=== PATIENT | female | born 1990 | race Caucasian/White ===

== ENCOUNTER 2016-12-27 21:45 | Emergency (ER) | payer MEDICAID ==
[~2016-12-27] VITALS: Ht 162.6 cm; Wt 95.3 kg
[~2016-12-27 21:45] MED LIST: LEVO500T3 PO; NOR5T PO
[2016-12-27 22:00] VITALS: BP 139/76
[2016-12-27 23:04] LABS: Urine Bilirubin Negative (Negative); Urine Blood Negative /uL (Negative); Urine Color Yellow (Yellow); Urine Glucose Normal (Normal); Urine Ketone Negative (Negative); Urine Nitrite Negative (Negative); Urine RBC 4 /hpf (0 - 4); Urine Squamous Epithelial Cell FEW /hpf (<5); Urine pH 5.5 (5.0-8.0)
[2016-12-27] MEDS ORDERED: KETOROLAC TROMETH 60MG/2ML VIAL IM ONE (23:15)
== END 2016-12-27 23:34 | disposition home or self-care (01) ==
LOC: ER 21:45
DX: N39.0 Urinary tract infection, site not specified (principal); M54.32 Sciatica, left side; M54.31 Sciatica, right side; F17.210 Nicotine dependence, cigarettes, uncomplicated
CPT/HCPCS: 81001; 96372; 99283; J1885

== ENCOUNTER 2017-04-03 16:49 | Emergency (ER) | payer MEDICAID ==
[~2017-04-03] VITALS: Ht 162.6 cm; Wt 96.2 kg
[~2017-04-03 16:49] MED LIST changes: +HYDR-4663 PO; +LEVO500T21 PO; -LEVO500T3 PO; -NOR5T PO
[2017-04-03 17:47] VITALS: BP 114/68
== END 2017-04-03 18:18 | disposition home or self-care (01) ==
LOC: ER 16:49
DX: J02.9 Acute pharyngitis, unspecified (principal); F17.210 Nicotine dependence, cigarettes, uncomplicated; E11.9 Type 2 diabetes mellitus without complications; Z87.442 Personal history of urinary calculi

== ENCOUNTER 2017-11-15 09:29 | Emergency (ER) | payer MEDICAID ==
[~2017-11-15] VITALS: Ht 162.6 cm; Wt 95.3 kg
[~2017-11-15 09:29] MED LIST changes: -HYDR-4663 PO; +HYDR-4683 PO
[2017-11-15 10:08] LABS: Urine Bacteria FEW /hpf (None Seen); Urine Blood Negative /uL (Negative); Urine Specific Gravity 1.008 (1.001-1.035); Urine WBC <1 /hpf (0 - 5)
[2017-11-15 10:28] LABS: Basophils # (auto) 0 uL; Basophils % (auto) 0.5 % (0.0-2.0); Eosinophils # (auto) 0.1 uL; Eosinophils % (auto) 1.7 % (0.0-7.0); Hematocrit 42.8 % (36.0-46.0); Hemoglobin 14.5 g/dL (12.2-16.2); Lymphocytes # (auto) 1.7 uL; Lymphocytes % (auto) 23.4 % (10.0-50.0); Mean Corpuscular Hgb Conc. 33.8 g/dL (32.0-36.0); Monocytes # (auto) 0.5 uL; Monocytes % (auto) 7.2 % (0.0-12.0); Neutrophils # (auto) 4.8 uL; Neutrophils % (auto) 67.2 % (37.0-80.0); Nucleated Red Blood Cells % 0.3 %; Platelet Count (auto) 305 10^3/uL (140-450); Red Blood Cells 4.98 10^6/uL (4.0-5.20); Red Cell Distribution Width 12.7 % (11.8-14.3); White Blood Cell 7.2 10^3/uL (4.4-10.8)
[2017-11-15 10:56] LABS: Albumin 3.7 g/dL (3.4-5.0); Calcium 8.4 mg/dL (8.5-10.1); Potassium 3.7 mmol/L (3.5-5.1)
[2017-11-15 10:58] LABS: Bilirubin, Total 0.7 mg/dL (0.2-1.0); Total Protein 7.6 g/dL (6.4-8.2)
[2017-11-15 12:35] VITALS: BP 120/63
[2017-11-15] MEDS ORDERED: HYDROcodone-ACET 5/325MG TAB ONE (16:08)
[2017-11-15] MEDS ORDERED: HYDROcodone-ACET 5/325MG TAB PO ONE (16:15)
== END 2017-11-15 16:52 | disposition home or self-care (01) ==
LOC: ER 09:29
DX: K80.20 Calculus of gallbladder without cholecystitis without obstruction (principal); K76.0 Fatty (change of) liver, not elsewhere classified; F17.210 Nicotine dependence, cigarettes, uncomplicated; Z87.442 Personal history of urinary calculi
CPT/HCPCS: 36415; 74176; 76705; 80053; 81001; 81025; 85025

== ENCOUNTER 2018-05-17 12:27 | Inpatient (IN) | payer MEDICAID ==
[~2018-05-17] VITALS: Ht 162.6 cm; Wt 94.6 kg
[2018-05-17 13:25] LABS: Urine Bacteria NONE SEEN /hpf (None Seen); Urine Blood Negative /uL (Negative); Urine WBC <1 /hpf (0 - 5)
[2018-05-17 13:26] LABS: Basophils # (auto) 0 uL; Basophils % (auto) 0.4 % (0.0-2.0); Eosinophils # (auto) 0.1 uL; Eosinophils % (auto) 0.7 % (0.0-7.0); Hematocrit 43.3 % (36.0-46.0); Hemoglobin 14.6 g/dL (12.2-16.2); Lymphocytes # (auto) 1.3 uL; Lymphocytes % (auto) 14.5 % (10.0-50.0); Mean Corpuscular Hemoglobin 29.7 pg (28.0-32.0); Mean Corpuscular Hgb Conc. 33.7 g/dL (32.0-36.0); Mean Corpuscular Volume 88.1 fL (80.0-100.0); Monocytes # (auto) 0.6 uL; Monocytes % (auto) 6.8 % (0.0-12.0); Neutrophils # (auto) 7.1 uL; Neutrophils % (auto) 77.6 % (37.0-80.0); Platelet Count (auto) 308 10^3/uL (140-450); Red Blood Cells 4.92 10^6/uL (4.0-5.20); Red Cell Distribution Width 12.9 % (11.8-14.3); White Blood Cell 9.2 10^3/uL (4.4-10.8)
[2018-05-17 13:46] LABS: Albumin 3.8 g/dL (3.4-5.0); Calcium 8.9 mg/dL (8.5-10.1); Potassium 3.7 mmol/L (3.5-5.1)
[2018-05-17 13:51] LABS: BUN/Creatinine Ratio 10.3; Bilirubin, Total 0.5 mg/dL (0.2-1.0); Total Protein 7.7 g/dL (6.4-8.2)
[2018-05-17] MEDS ORDERED: SODIUM CHLORIDE 0.9% 500 ML IVB ONE (17:47)
[2018-05-17] MEDS ORDERED: MORPHINE SULFATE 4 MG/ML SYR/VIAL IV ONE (18:00)
[2018-05-17] MEDS ORDERED: ONDANSETRON HCL 4 MG/2 ML VIAL IV ONE (18:00)
[2018-05-17] MEDS ORDERED: VANCOMYCIN PER PHARMACY 0 MG IV SCH (18:30)
[2018-05-17] MEDS ORDERED: cefTRIAXone 1GM/10ml IVPUSH 10 ML IV ONE (18:30)
[2018-05-17] MEDS ORDERED: MORPHINE SULF INJ 2 MG/ML SYRINGE 1ML IV PRN (18:45)
[2018-05-17] MEDS ORDERED: TEMAZEPAM 15 MG CAP PO PRN (18:45)
[2018-05-17] MEDS ORDERED: NITROGLYCERIN 0.4 MG SL TAB SL PRN (18:45)
[2018-05-17] MEDS ORDERED: ACETAMINOPHEN 325 MG TAB PO PRN (18:45)
[2018-05-17] MEDS ORDERED: PROMETHAZINE HCL 25 MG/ML 1ML IV PRN (18:45)
[2018-05-17] MEDS ORDERED: KETOROLAC TROMETH 30 MG/ML 1ML VIAL IV PRN (18:45)
[2018-05-17] MEDS ORDERED: HYDROcodone-ACET 5/325MG TAB PO PRN (18:45)
[2018-05-17] MEDS ORDERED: DOCUSATE SOD 100 MG CAP PO PRN (18:45)
[2018-05-17] MEDS: VANCOMYCIN 1GM/250ML 250 ML IV SCH (19:12)
[2018-05-17 22:00] VITALS: BP 135/69
[2018-05-17] MEDS: SODIUM CHLOR 0.9% PF (SALINE LOCK) 10ML VIAL/SYR IV SCH (22:18)
[2018-05-17] MEDS: FAMOTIDINE 20 MG TAB PO SCH (22:18)
[2018-05-17 22:21] VITALS: BP 135/69
[2018-05-18 05:00] VITALS: BP 105/60
[2018-05-18] MEDS ORDERED: TRAM50TA2 PO (05:14)
[2018-05-18] MEDS: VANCOMYCIN 1GM/250ML 250 ML IV SCH (05:54)
[2018-05-18] MEDS: SODIUM CHLOR 0.9% PF (SALINE LOCK) 10ML VIAL/SYR IV SCH ×2 (05:54→14:00)
[2018-05-18 06:42] LABS: Basophils # (auto) 0 uL; Basophils % (auto) 0.3 % (0.0-2.0); Eosinophils # (auto) 0.2 uL; Eosinophils % (auto) 2.1 % (0.0-7.0); Hematocrit 41.3 % (36.0-46.0); Hemoglobin 14.1 g/dL (12.2-16.2); Lymphocytes # (auto) 1.6 uL; Lymphocytes % (auto) 20.5 % (10.0-50.0); Mean Corpuscular Hemoglobin 30.1 pg (28.0-32.0); Mean Corpuscular Hgb Conc. 34.1 g/dL (32.0-36.0); Mean Corpuscular Volume 88.2 fL (80.0-100.0); Monocytes # (auto) 0.7 uL; Monocytes % (auto) 9.2 % (0.0-12.0); Neutrophils # (auto) 5.3 uL; Neutrophils % (auto) 67.9 % (37.0-80.0); Platelet Count (auto) 281 10^3/uL (140-450); Red Blood Cells 4.68 10^6/uL (4.0-5.20); White Blood Cell 7.9 10^3/uL (4.4-10.8)
[2018-05-18 07:16] LABS: Albumin 3.3 g/dL (3.4-5.0); BUN/Creatinine Ratio 17.9; Bilirubin, Total 0.6 mg/dL (0.2-1.0); Calcium 8.4 mg/dL (8.5-10.1); Potassium 3.8 mmol/L (3.5-5.1); Total Protein 6.8 g/dL (6.4-8.2)
[2018-05-18 09:00] VITALS: BP 112/66
[2018-05-18] MEDS ORDERED: cefTRIAXone 1GM/10ml IVPUSH 10 ML IV SCH (09:00)
[2018-05-18] MEDS: FAMOTIDINE 20 MG TAB PO SCH (09:43)
[2018-05-18] MEDS ORDERED: MULTIPLE VITAMIN TAB PO SCH (10:00)
[2018-05-18 12:38] VITALS: BP_SYST 120; BP_SYST 151; BP_DIAS 61; BP_DIAS 72
[2018-05-18 16:52] VITALS: BP 120/73
== END 2018-05-18 17:15 | disposition home or self-care (01) | DRG 465 ==
LOC: ER 12:27 → TELE 12:28 → TELE-WESTW 22:07
PROVIDERS: ADMIT Internal Medicine; ATTEND Internal Medicine
DX: N23 Unspecified renal colic (principal); F32.9 Major depressive disorder, single episode, unspecified; K80.20 Calculus of gallbladder without cholecystitis without obstruction; Z68.35 Body mass index [BMI] 35.0-35.9, adult; E66.9 Obesity, unspecified; F17.210 Nicotine dependence, cigarettes, uncomplicated; K42.9 Umbilical hernia without obstruction or gangrene; Z83.3 Family history of diabetes mellitus
CPT/HCPCS: 36415; 74176; 76705; 80053; 81001; 83605; 83690; 84702; 85025; 87040; 87081; 87086; 94761; 96374; 96375; J0696

== ENCOUNTER 2018-10-31 08:03 | Emergency (ER) | payer MEDICAID ==
[~2018-10-31] VITALS: Ht 162.6 cm; Wt 95.3 kg
[~2018-10-31 08:03] MED LIST changes: -HYDR-4683 PO; -LEVO500T21 PO; +TRAM50TA2 PO
[2018-10-31 08:20] VITALS: BP 143/74
== END 2018-10-31 10:57 | disposition home or self-care (01) ==
LOC: ER 08:03
DX: J02.9 Acute pharyngitis, unspecified (principal); F12.10 Cannabis abuse, uncomplicated; F17.210 Nicotine dependence, cigarettes, uncomplicated; Z87.442 Personal history of urinary calculi

== ENCOUNTER 2019-08-01 16:05 | Emergency (ER) | payer MEDICAID ==
[~2019-08-01] VITALS: Ht 162.6 cm; Wt 95.3 kg
[2019-08-01 16:42] LABS: Urine WBC None Seen /hpf (0 - 5)
[2019-08-01 16:52] LABS: Basophils # (auto) 0 uL; Basophils % (auto) 0.4 % (0.0-2.0); Eosinophils # (auto) 0.1 uL; Hematocrit 45.4 % (36.0-46.0); Hemoglobin 15.1 g/dL (12.2-16.2); Lymphocytes # (auto) 2.3 uL; Lymphocytes % (auto) 20.2 % (10.0-50.0); Mean Corpuscular Hgb Conc. 33.2 g/dL (32.0-36.0); Mean Corpuscular Volume 87.4 fL (80.0-100.0); Monocytes # (auto) 0.8 uL; Neutrophils % (auto) 71.4 % (37.0-80.0); Platelet Count (auto) 314 10^3/uL (140-450); Red Cell Distribution Width 14.1 % (11.8-14.3); White Blood Cell 11.2 10^3/uL (4.4-10.8)
[2019-08-01 17:06] LABS: Albumin 3.9 g/dL (3.4-5.0); Calcium 9.1 mg/dL (8.5-10.1); Potassium 3.6 mmol/L (3.5-5.1)
[2019-08-01 17:09] LABS: Bilirubin, Total 0.7 mg/dL (0.2-1.0)
[2019-08-01 17:14] LABS: Urine Bacteria NONE SEEN /hpf (None Seen); Urine Blood Negative /uL (Negative); Urine Specific Gravity 1.007 (1.001-1.035)
[2019-08-01] MEDS ORDERED: HYDROcodone-ACET 10/325MG TAB PO ONE (17:45)
[2019-08-01 19:23] VITALS: BP 108/59
== END 2019-08-01 19:30 | disposition home or self-care (01) ==
LOC: ER 16:05
DX: K80.20 Calculus of gallbladder without cholecystitis without obstruction (principal); F17.210 Nicotine dependence, cigarettes, uncomplicated; F12.10 Cannabis abuse, uncomplicated
CPT/HCPCS: 36415; 74176; 80053; 81001; 81025; 83690; 85025

== ENCOUNTER 2021-06-12 15:37 | Emergency (ER) | payer MEDICAID ==
[~2021-06-12] VITALS: Ht 162.6 cm; Wt 95.3 kg
[2021-06-12 17:39] VITALS: BP 106/76
== END 2021-06-12 18:11 | disposition home or self-care (01) ==
LOC: ER 15:37
DX: J20.9 Acute bronchitis, unspecified (principal); J02.9 Acute pharyngitis, unspecified; Z20.822 Contact with and (suspected) exposure to COVID-19
CPT/HCPCS: 36415; 71045; 71046; 87426

== ENCOUNTER 2021-06-28 14:58 | Emergency (ER) | payer MEDICAID ==
[~2021-06-28] VITALS: Ht 162.6 cm; Wt 95.3 kg
[2021-06-28 18:51] VITALS: BP 134/69
[2021-06-28] MEDS ORDERED: ONDANSETRON ODT 4 MG TAB PO ONE (19:15)
[2021-06-28] MEDS ORDERED: HYDROcodone-ACET 10/325MG TAB PO ONE (19:15)
[2021-06-28] MEDS ORDERED: cefTRIAXone 1GM/50ML D5W 50 ML IV ONE (19:30)
[2021-06-28] MEDS ORDERED: LIDOCAINE 2%HCL (LOCAL ANESTH.) INJ 10ml MDV IJ ONE (20:00)
[2021-06-28] MEDS ORDERED: LIDOCAINE 1% HCL (LOCAL ANESTH.) INJ 20ML MDV ID ONE (20:15)
== END 2021-06-28 22:10 | disposition home or self-care (01) ==
LOC: ER 14:58
DX: L05.01 Pilonidal cyst with abscess (principal); E66.9 Obesity, unspecified; Z68.36 Body mass index [BMI] 36.0-36.9, adult; Z87.891 Personal history of nicotine dependence; Z79.899 Other long term (current) drug therapy
CPT/HCPCS: 10080; 96365; 99284; C1887; J0696; J2001; Q0162

== ENCOUNTER 2022-01-29 08:35 | Emergency (ER) | payer MEDICAID ==
[~2022-01-29] VITALS: Ht 162.6 cm; Wt 99.8 kg
[2022-01-29 08:37] VITALS: BP 129/76
[2022-01-29] MEDS ORDERED: KETOROLAC TROMETH 60MG/2ML VIAL IM ONE (09:00)
[2022-01-29] MEDS ORDERED: IBUP800T27 PO (09:08)
== END 2022-01-29 09:16 | disposition home or self-care (01) ==
LOC: ER 08:35
DX: S83.92XA Sprain of unspecified site of left knee, initial encounter (principal); F12.10 Cannabis abuse, uncomplicated; Z87.442 Personal history of urinary calculi; Z87.891 Personal history of nicotine dependence; W18.09XA Striking against other object with subsequent fall, initial encounter; Y93.01 Activity, walking, marching and hiking; Y92.89 Other specified places as the place of occurrence of the external cause; Y99.8 Other external cause status
CPT/HCPCS: 96372; 99283; J1885

== ENCOUNTER 2022-02-23 07:49 | Emergency (ER) | payer MEDICAID ==
[~2022-02-23] VITALS: Ht 162.6 cm; Wt 99.8 kg
[~2022-02-23 07:49] MED LIST changes: +IBUP800T27 PO
[2022-02-23 09:11] VITALS: BP 121/70
[2022-02-23 12:25] LABS: Basophils # (auto) 0.1 10 ^3/uL (0-0.2); Basophils % (auto) 1.5 % (0.0-2.0); Eosinophils # (auto) 0.1 10 ^3/uL (0-0.8); Eosinophils % (auto) 0.8 % (0.0-7.0); Hematocrit 39.4 % (36.0-46.0); Hemoglobin 13.5 g/dL (12.2-16.2); Lymphocytes # (auto) 0.9 10 ^3/uL (0.4-5.4); Lymphocytes % (auto) 8.9 % (10.0-50.0); Mean Corpuscular Hemoglobin 29.6 pg (28.0-32.0); Mean Corpuscular Hgb Conc. 34.4 g/dL (32.0-36.0); Monocytes # (auto) 0.7 10 ^3/uL (0-1.3); Monocytes % (auto) 7.2 % (0.0-12.0); Neutrophils % (auto) 81.6 % (37.0-80.0); Red Blood Cells 4.58 10^6/uL (4.0-5.20); Red Cell Distribution Width 12.8 % (11.8-14.3); White Blood Cell 9.8 10^3/uL (4.4-10.8)
[2022-02-23 12:30] LABS: Urine Bacteria FEW /hpf (None Seen); Urine Blood Negative /uL (Negative); Urine Mucus FEW (None Seen); Urine Specific Gravity 1.016 (1.001-1.035); Urine WBC 3 /hpf (0 - 5)
[2022-02-23 12:33] LABS: Potassium 3.8 mmol/L (3.5-5.1)
[2022-02-23 12:37] LABS: Albumin 3.4 g/dL (3.4-5.0); BUN/Creatinine Ratio 14.3; Calcium 9.1 mg/dL (8.5-10.1)
[2022-02-23 12:40] LABS: Bilirubin, Total 0.6 mg/dL (0.2-1.0); Total Protein 7.4 g/dL (6.4-8.2)
[2022-02-23] MEDS ORDERED: LIDOCAINE 1% HCL (LOCAL ANESTH.) INJ 20ML MDV ID ONE (13:00)
[2022-02-23] MEDS ORDERED: LIDOCAINE 1% (LOCAL ANESTH.) PF 5ml SDV ONE (13:04)
[2022-02-23] MEDS ORDERED: CLIN-203 PO (13:41)
== END 2022-02-23 13:47 | disposition home or self-care (01) ==
LOC: ER 07:49
DX: L05.01 Pilonidal cyst with abscess (principal); R55 Syncope and collapse; F12.10 Cannabis abuse, uncomplicated; Z87.891 Personal history of nicotine dependence
CPT/HCPCS: 10080; 36415; 70450; 71045; 80053; 81001; 84484; 85025; 93005

== ENCOUNTER 2022-02-25 10:41 | Emergency (ER) | payer MEDICAID ==
[~2022-02-25] VITALS: Ht 162.6 cm; Wt 99.8 kg
[~2022-02-25 10:41] MED LIST changes: +CLIN-203 PO
[2022-02-25 10:58] VITALS: BP 125/60
== END 2022-02-25 11:38 | disposition home or self-care (01) ==
LOC: ER 10:41
DX: L05.01 Pilonidal cyst with abscess (principal); Z87.891 Personal history of nicotine dependence; Z79.1 Long term (current) use of non-steroidal anti-inflammatories (NSAID); Z79.2 Long term (current) use of antibiotics; Z79.899 Other long term (current) drug therapy

== ENCOUNTER 2022-06-14 20:51 | Emergency (ER) | payer MEDICAID ==
[~2022-06-14] VITALS: Ht 162.6 cm; Wt 100.0 kg
[2022-06-15 00:03] LABS: Urine Bacteria FEW /hpf (None Seen); Urine Blood Negative /uL (Negative); Urine Specific Gravity 1.024 (1.001-1.035); Urine WBC 2 /hpf (0 - 5)
[2022-06-15 00:23] LABS: Basophils # (auto) 0 10 ^3/uL (0-0.2); Basophils % (auto) 0.6 % (0.0-2.0); Eosinophils # (auto) 0.2 10 ^3/uL (0-0.8); Eosinophils % (auto) 2.7 % (0.0-7.0); Hematocrit 40.6 % (36.0-46.0); Hemoglobin 13.7 g/dL (12.2-16.2); Lymphocytes # (auto) 1.3 10 ^3/uL (0.4-5.4); Lymphocytes % (auto) 16.8 % (10.0-50.0); Mean Corpuscular Hemoglobin 28.9 pg (28.0-32.0); Mean Corpuscular Hgb Conc. 33.7 g/dL (32.0-36.0); Mean Corpuscular Volume 85.7 fL (80.0-100.0); Monocytes # (auto) 0.6 10 ^3/uL (0-1.3); Monocytes % (auto) 8.6 % (0.0-12.0); Neutrophils # (auto) 5.3 10 ^3/uL (1.6-8.6); Neutrophils % (auto) 71.3 % (37.0-80.0); Nucleated Red Blood Cells % 0.2 %; Red Blood Cells 4.74 10^6/uL (4.0-5.20); Red Cell Distribution Width 13.2 % (11.8-14.3); White Blood Cell 7.5 10^3/uL (4.4-10.8)
[2022-06-15 00:35] LABS: Albumin 3.8 g/dL (3.4-5.0); BUN/Creatinine Ratio 26.9; Calcium 8.9 mg/dL (8.5-10.1); Potassium 3.5 mmol/L (3.5-5.1)
[2022-06-15 00:38] LABS: Bilirubin, Total 0.4 mg/dL (0.2-1.0); Total Protein 7.5 g/dL (6.4-8.2)
[2022-06-15 04:14] VITALS: BP 115/68
== END 2022-06-15 04:32 | disposition home or self-care (01) ==
LOC: ER 20:51
DX: F41.8 Other specified anxiety disorders (principal); Z87.891 Personal history of nicotine dependence; Z79.1 Long term (current) use of non-steroidal anti-inflammatories (NSAID); Z79.2 Long term (current) use of antibiotics; Z79.899 Other long term (current) drug therapy
CPT/HCPCS: 36415; 71045; 80053; 81001; 81025; 83880; 84484; 85025; 93005

== ENCOUNTER 2024-01-12 12:53 | Emergency (ER) | payer MEDICAID ==
[~2024-01-12] VITALS: Ht 162.6 cm; Wt 100.0 kg
[~2024-01-12 12:53] MED LIST changes: +AMOX875T4 PO; +IBUP-1454 PO; +IBUP-1456 PO; -IBUP800T27 PO
[2024-01-12 15:42] VITALS: BP 134/88; PULSE 78; RESP 18; TEMP 98.2; O2SAT 98
[2024-01-12] MEDS ORDERED: MELO7.5T7 PO (15:58)
== END 2024-01-12 16:02 | disposition home or self-care (01) ==
LOC: ER 12:53
DX: M79.604 Pain in right leg (principal); K80.20 Calculus of gallbladder without cholecystitis without obstruction; F15.90 Other stimulant use, unspecified, uncomplicated; Z87.442 Personal history of urinary calculi; Z98.890 Other specified postprocedural states; Z87.891 Personal history of nicotine dependence; Z79.899 Other long term (current) drug therapy

== ENCOUNTER 2024-11-07 14:33 | Emergency (ER) | payer BC, MEDICAID ==
[~2024-11-07] VITALS: Ht 162.6 cm; Wt 95.5 kg
[~2024-11-07 14:33] MED LIST changes: +MELO7.5T7 PO
--- NOTE | 2024-11-07 16:11 | ED.PDOC ---
Musculoskeletal HPI Comments 34 y.o male presents to the ED for a chief complaint of right calf pain radiating up her leg that presented 4 days ago with tingling sensation to same region and left hand x 1 week. 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 Patient denies any swelling to leg, erythema, fever, chills, SOB, chest pain. Patient was sent to the ED from urgent care today to rule out DVT. Chief Complaint: Lower Extremity Time Seen by MD: 15:54 Primary Care Provider: NALINI Sultana Notes: Nurses Notes, Medications, Allergies Allergies: Coded Allergies: NO KNOWN ALLERGIES (Unverified , 10/19/15) Home Meds Active Scripts Meloxicam (Meloxicam) 7.5 Mg Tab, 1 TAB PO DAILYP PRN for 30 Days, #30 TAB 0 Refills Prov:ADELSO BERRIOS FLAG SIGNALER 01/12/24 Ibuprofen (Ibuprofen) 600 Mg Tab, 600 MG PO TIDPRN PRN for 10 Days, #30 TAB Prov:JOSEE HOPKINS DO 01/08/24 Amoxicillin & Pot Clavulanate (Amoxicillin/Potassium Cla) 875 Mg Tab, 1 TAB PO BID for 10 Days, #20 TAB Prov:JOSEE HOPKINS DO 01/08/24 Clindamycin HCl (Clindamycin Hydrochloride) 300 Mg Cap, 450 MG PO TID for 7 Days, #21 CAP 0 Refills Prov:BELINDA BENITEZ 02/23/22 Ibuprofen (Ibuprofen) 800 Mg Tab, 800 MG PO TID PRN, #30 TAB Prov:EDIL BARBER 01/29/22 Reported Medications Tramadol Hcl (Tramadol Hcl) 50 Mg Tab, 10 MG PO Q8HPRN, MG 05/18/18 Information Source: Patient Mode of Arrival: Ambulatory Location: Right Extremity Location: Calf, Leg Timing: Weeks (1) Severity: Moderate Able to Move Extremity: Yes Bear Weight: Limited Pain: Mild Mechanism: None Circumstances: Spontaneous Onset of Symptoms: Spontaneous Symptoms: Pain DVT Risk Factors: NONE Associated signs and symptoms: Leg pain Past Medical History PAST MEDICAL HISTORY: Gallstones, Kidney Stones Surgical History: COMPUTER SYSTEMS ENGINEER History: No Pertinent COMPUTER SYSTEMS ENGINEER History Family History Family History: Reviewed,noncontributory to illness, Family hx of DM, Family hx of HTN Social History Smoker: Quit Greater Than 1 Year Alcohol: Denies ETOH Use Drugs: Marijuana Lives In: Home Constitutional: denies: chills, diaphoresis, fatigue, fever, malaise, sweats, weakness, others EENTM: denies: blurred vision, double vision, ear bleeding, ear discharge, ear drainage, ear pain, ear ringing, eye pain, eye redness, hearing loss, mouth pain, mouth swelling, nasal discharge, nose bleeding, nose congestion, nose pain, photophobia, tearing, throat pain, throat swelling, voice changes, others Respiratory: denies: cough, hemoptysis, orthopnea, SOB at rest, shortness of breath, SOB with excertion, stridor, wheezing, others Cardiovascular: denies: chest pain, dizzy spells, diaphoresis, Dyspnea on exertion, edema, irregular heart beat, left arm pain, lightheadedness, palpitations, PND, syncope, others Gastrointestinal: denies: abdomen distended, abdominal pain, blood streaked bowels, constipated, diarrhea, dysphagia, difficulty swallowing, hematemesis, melena, nausea, poor appetite, poor fluid intake, rectal bleeding, rectal pain, vomiting, others Genitourinary: denies: abnormal vagina bleeding, burning, dyspareunia, dysuria, flank pain, frequency, hematuria, incontinence, pain, , vagina discharge, urgency, others Neurological: reports: tingling (right lower leg ); denies: dizziness, fainting, headache, left sided numbness, left sided weakness, numbness, paresthesia, pre-existing deficit, right sided numbness, right sided weakness, seizure, speech problems, tremors, weakness, others Musculoskeletal: reports: others (right lower leg pain ); denies: back pain, gout, joint pain, joint swelling, muscle pain, muscle stiffness, neck pain Integumetry: denies: bruises, change in color, change in hair/nails, dryness, laceration, lesions, lumps, rash, wounds, others Allergic/Immunocompromised: denies: Difficulty Healing, Frequent Infections, Hives, Itching, others Hematologic/Lymphatic: denies: anemia, blood clots, easy bleeding, easy bruising, swollen glands, others Endocrine: denies: excessive hunger, excessive sweating, excessive thirst, excessive urination, flushing, intolerance to cold, intolerance to heat, unexplained weight gain, unexplained weight loss, others Psychiatric: denies: anxiety, bipolar disorder, depression, hopeless, panic disorder, schizophrenia, sleepless, suicidal, others All Other Systems: Reviewed and Negative Physical Exam General Appearance: No Apparent Distress, Normal HEENT: Normal ENT Inspection, Pharynx Normal, TMs Normal Neck: Full Range of Motion, Non-Tender, Normal, Normal Inspection Respiratory: Chest Non-Tender, Lungs Clear, No Accessory Muscle Use, No Respiratory Distress, Normal Breath Sounds Cardiovascular: No Edema, No JVD, No Murmur, No Gallop, Normal Peripheral Pulses, Regular Rate/Rhythm Breast Exam: Deferred Gastrointestinal: No Organomegaly, Non Tender, No Pulsatile Mass, Normal Bowel Sounds, Soft Genitalia: Deferred Pelvic: Deferred Rectal: Deferred Extremities: Other (symmetrical, cool to the touch ) Musculoskeletal : Apperance: Normal Neurologic: Alert, 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 Was a procedure done?: No Differential Diagnosis EXT Differential Diagnosis: Deep Vein Thrombosis, Sprain, Dislocation, Gout, Contusion, Strain, Rheumatoid X-Ray, Labs, Meds, VS Vital Signs Date Time Temp Pulse Resp B/P (MAP) Pulse Ox O2 Delivery O2 Flow Rate FiO2 11/07/24 14:53 Room Air 0 11/07/24 14:53 98.6 72 16 124/72 (89) 97 X-Ray, Labs, Meds, VS Comment IMAGING: X-RAYS AND CT SCANS WERE REVIEWED AND INTERPRETED BY THIS PROVIDER, IMAGING SHOWS NO FRACTURES AND NO PATHOLOGICAL DISEASE. PENDING RADIOLOGY REVIEW. LABORATORY: LABS REVIEWED AND INTERPRETED BY THIS PROVIDER. NO SIGNIFICANT ABNORMALITIES NOTED. PATIENT HAS PRIOR MEDICAL VISITS REVIEWED. MED RECONCILIATION PERFORMED VITAL SIGNS REVIEWED Time of 1ST Reevaluation: 16:11 Reevaluation 1ST: Unchanged Patient Education/Counseling: Diagnosis, Treatment, Prognosis, Need For Follow Up (PATIENT ADVISED TO FOLLOW-UP IN THE EMERGENCY ROOM IN THE NEXT 24 TO 48 HOURS IF SYMPTOMS DO NOT IMPROVE. ADVISED FOLLOW-UP WITH PCP IN THE NEXT 3 TO 5 DAYS. PATIENT VERBALIZED UNDERSTANDING. ) Family Education/Counseling: No Family Present Departure 1 Departure Time of Disposition: 18:10 Impression: Primary Impression: Right calf pain Additional Impression: Cervical radiculopathy Disposition: HOME / SELF CARE / HOMELESS Condition: Fair e-Prescriptions Ibuprofen (Ibuprofen) 600 Mg Tab 1 TAB PO TID PRN, #30 TAB Prov: OMAR CASTILLO 11/07/24 Cyclobenzaprine Hcl (Cyclobenzaprine Hcl) 5 Mg Tab 1 TAB PO TID PRN, #30 TAB Prov: OMAR CASTILLO 11/07/24 Discharged With: Self Critical Care Note Critical Care Time?: No Stability Stability form required: No I personally scribed for OMAR CASTILLO ([facility]) on 11/07/24 at 16:11. Electronically submitted by Moriah Avina ([facility]). OMAR CASTILLO Nov 07, 2024 16:11
--- NOTE | 2024-11-07 16:39 | DVH ---
Right lower extremity venous duplex Clinical History: rt calf pain Comparison: None Technique: Duplex Doppler evaluation of the deep venous system of the right lower extremity from the common femo ral vein to the popliteal vein including color Doppler and spectral/pulsed waveform analysis was perf ormed. Findings: The common femoral vein demonstrates appropriate compressibility and waveform variability . There is compressibility/patency of the great saphenous vein at the proximal thigh . The femoral vein demonstrates appropriate compressibility and waveform variability . The deep femoral vein demonstrates appropriate compressibility and waveform variability . The popliteal vein demonstrates appropriate compressibility and waveform variability . There is normal compressibility at the tibioperoneal trunk. Impression: No right femoropopliteal venous thrombosis.
[2024-11-07] MEDS ORDERED: CYCL-837 PO (18:11)
[2024-11-07] MEDS ORDERED: IBUP-1454 PO (18:11)
[2024-11-07 18:28] VITALS: BP 118/74; PULSE 63; RESP 16; TEMP 98.3; O2SAT 97
== END 2024-11-07 18:33 | disposition home or self-care (01) ==
LOC: ER 14:33
DX: M79.661 Pain in right lower leg (principal); M54.12 Radiculopathy, cervical region; Z79.899 Other long term (current) drug therapy; Z98.890 Other specified postprocedural states
CPT/HCPCS: 93971